=== PATIENT | female | born 1950 | race Caucasian/White ===

== ENCOUNTER 2022-04-18 08:00 | Outpatient (CLI) | payer MEDICARE | END 2022-04-18 23:59 | disposition home or self-care (01) | LOC: LAB 08:00 | PROVIDERS: ATTEND Physician Assistant Medical | DX: N30.00 Acute cystitis without hematuria (principal) | CPT/HCPCS: 87086 ==

== ENCOUNTER 2022-10-30 15:24 | Emergency (ER) | payer MEDICARE ==
[2022-10-30] MEDS ORDERED: ACETAMINOPHEN 325 MG TABLET PO STA (15:55)
--- NOTE | 2022-10-30 16:48 | ED Physician Documentation ---
PD HPI UPPER EXT INJURY - Stated complaint Stated Complaint: L ARM LAC/DOG BITE - Chief complaint Chief Complaint: Laceration - History obtained from History obtained from: Patient - History of Present Illness Location: Left, Forearm Type of injury: Other (dog bite - she was using garden hose with nozzle sprayer and her dog was playing and tried to bite at the nozzle, and instead bit her forearm with large laceration volar side. Small punctures dorsal side. 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 Dressing applied in triage.), Still present Review of Systems Constitutional: denies: Fever, Chills Skin: reports: Abrasion (s), Laceration (s) Musculoskeletal: denies: Neck pain, Back pain Neurologic: denies: Focal weakness, Numbness PD PAST MEDICAL HISTORY - Past Medical History Cardiovascular: Atrial fibrillation Respiratory: None Neuro: None Endocrine/Autoimmune: None QI SPECIALIST: None Musculoskeletal: None Derm: None - Present Medications Home Medications: Ambulatory Orders Medication Instructions Recorded Confirmed Brimonidine 0.2% Ophth Drops 1 drops OPTH BID 10/30/22 10/30/22 [Alphagan P 0.2% Ophth Drops] Doxycycline Hyclate 100 mg PO BID 5 Days #10 cap 10/30/22 Latanoprost 0.005% Ophth Drops 1 drops OPTH QPM 10/30/22 10/30/22 [Xalatan Ophth Drops] Rivaroxaban [Xarelto] 20 mg PO DAILY 10/30/22 10/30/22 Valsartan [Diovan] 40 mg PO DAILY 10/30/22 10/30/22 carvediloL [Coreg] 3.125 mg PO BID 10/30/22 10/30/22 - Allergies Allergies/Adverse Reactions: Allergies Allergy/AdvReac Type Severity Reaction Status Date / Time Penicillins Allergy Itching Verified 10/30/22 15:33 - Living Situation Living Situation: reports: With spouse/s.o. Living Arrangement: reports: At home - Family History Family history: denies: Non contributory PD ED PE NORMAL - Vitals Vital signs reviewed: Yes - General General: Alert and oriented X 3, Well developed/nourished, Other (somewhat anxious about the event.) - Neck Neck: Supple, no meningeal sign - Derm Derm: Normal color, Warm and dry - Extremities Extremities: Other (left mid to distal forearm volar aspect with large 10 cm laceration exposing the deeper structures. ) - Neuro Neuro: Alert and oriented X 3, No motor deficit, No sensory deficit, Normal speech Results - Vitals Vitals: Vital Signs - 24 hr 10/30/22 10/30/22 15:30 17:35 Temperature 37 C 36.8 C Heart Rate 82 80 Respiratory 16 16 Rate Blood Pressure 165/100 H 150/88 H O2 Saturation 98 100 Oxygen O2 Source Room air Procedures - Laceration (location) left forearm Length in cm: 10.5 Wound type: Curved, Into subcut fat Neurovascular status: Sensory intact, Motor intact, Vascular intact Tendon involvement: Tendon intact Anesthesia: Lidocaine 1%, Volume - enter ml (12) Wound preparation: Irrigated copiously NS Deep layer closure: Vicryl, size #-0 - enter number (5), # sutures - enter number (8) Skin layer closure: Nylon, Running, Size #-0 - enter number (4), Sutures - enter # (32) Other: Patient tolerated well, No complications, Neurovascular intact, Dressing applied, Tetanus UTD PD Medical Decision Making - ED course Complexity details: considered differential (large laceration down to fatty tissue. no muscle injury/involvement. SOme ongoing ozozing blood.), d/w patient Departure - Departure Disposition: 01 Home, Self Care Clinical Impression: Dog bite of forearm Qualifiers: Encounter type: initial encounter Laterality: left Qualified Code(s): S51.852A - Open bite of left forearm, initial encounter Condition: Stable Record reviewed to determine appropriate education?: Yes Instructions: ED Laceration All Prescriptions: Doxycycline Hyclate 100 mg PO BID 5 Days #10 cap Comments: It is okay to wash and shower. Clean off the wound twice a day with soap and water, or peroxide and water. Apply some antibiotic ointment to it to keep it moist. Also to watch for signs of infection such as purulence, redness or increasing pain. Return to your primary care or the ER at the specified time for suture removal. Suture removal 9 or 10 days. Tylenol or ibuprofen as needed for pains. Doxycycline antibiotic twice daily for 5 days. I sent it to your preferred pharmacy. In light use of the left wrist and arm while the sutures are in but definitely use have some use of it so the scar tissue heals looser. Forms: PCP List Discharge Date/Time: 10/30/22 18:35
[2022-10-30] MEDS ORDERED: lidocaine 1% 20 ML MDV SUBQ ONE (17:02)
[2022-10-30] MEDS ORDERED: lidocaine 1% 20 ML MDV ONE (17:08)
[2022-10-30] MEDS ORDERED: DOXYCYCLINE 100 MG TABLET PO STA (18:09)
[2022-10-30 18:41] VITALS: BP 150/88; O2SAT 100
== END 2022-10-30 18:35 | disposition home or self-care (01) ==
LOC: ED 15:24
DX: S51.812A Laceration without foreign body of left forearm, initial encounter (principal); W54.0XXA Bitten by dog, initial encounter; Y93.89 Activity, other specified; Y92.009 Unspecified place in unspecified non-institutional (private) residence as the place of occurrence of the external cause
CPT/HCPCS: 12004; 99282; A9270